=== PATIENT | female | born 1995 | race African-American/Black ===

== ENCOUNTER 2020-09-18 22:34 | Emergency (ER) | payer MEDICAID ==
[~2020-09-18] VITALS: Ht 162.6 cm; Wt 59.0 kg
--- NOTE | 2020-09-18 22:45 | NUR ---
ED Nurse Note: Pt reports right upper mouth pain intermittent for past couple of months. Pt reports she needs a root canal.
[2020-09-18] MEDS ORDERED: ACETAMINOPHEN-1 EAC1 ORAL (23:22)
[2020-09-18] MEDS ORDERED: PENICILLIN V P500 MG PO (23:22)
--- NOTE | 2020-09-18 23:25 | Emergency Room Report ---
History of Present Illness General Chief Complaint: Toothache Source: Patient Present Illness HPI Patient is a 24-year-old female presents for increased dental pain. Reports having increased pain to the right upper molar. Reports having previously been taking antibiotics for similar symptoms in the past. Had reported having increased pain with movement. Pain primarily to the right upper third molar. Denies any recent trauma. Not been of any fever or cough. Denies any locations of other discomfort. Allergies: Coded Allergies: No Known Allergies (Unverified , 09/18/20) COVID-19 Screening Contact w/high risk pt: No Experienced COVID-19 symptoms?: No COVID-19 Testing performed BUTTON BRADDER: No Patient History Past Medical History: see triage record Last Menstrual Period: 09/06/20 Now: No Reviewed Nursing Documentation: PMH: Agreed; PSxH: Agreed Nursing Documentation-PMH Past Medical History: No Stated History Review of Systems All Other Systems: negative except mentioned in HPI Physical Exam Vital Signs Date Time Temp Pulse Resp B/P (MAP) Pulse Ox O2 Delivery O2 Flow Rate FiO2 09/18/20 22:54 97.5 70 16 132/84 (100) 96 Room Air Sp02 EP Interpretation: reviewed, normal General Appearance: normal inspection, well appearing, no apparent distress, alert, GCS 15, non-toxic Head: atraumatic ENT: normal ENT inspection, hearing grossly normal, normal voice, other - Gingival swelling to third molar area on the right upper Neck: normal inspection, full range of motion, supple, no bony tend Respiratory: normal inspection, lungs clear, normal breath sounds, no respiratory distress, no retraction, no wheezing Cardiovascular #1: regular rate, rhythm, no edema Gastrointestinal: normal inspection, normal bowel sounds, non tender, soft, no guarding, no hernia Genitourinary: no CVA tenderness Musculoskeletal: normal inspection, back normal, normal range of motion Neurologic: alert, responsive, speech normal, normal inspection Psychiatric: normal inspection, judgement/insight normal, mood/affect normal Medical Decision Making Diagnostic Impression: Primary Impression: Impacted third molar tooth ER Course Presents for dental pain. Differential diagnosis include was not limited to dental caries, abscess, among others. Patient has a benign exam and does not appear to require any imaging or laboratory testing at this time. Patient does not appear to have any evidence of significant soft tissue swelling or any definite abscess at this time. Patient is given prescription for penicillin as well as medications for pain. She is advised to follow-up with oral surgery for recheck. She advised to return if worse. This medical record is generated with [email or web address] mill platform supervisor software. There may be some mill platform supervisor discrepancies related to use of this software Last Vital Signs Date Time Temp Pulse Resp B/P (MAP) Pulse Ox O2 Delivery O2 Flow Rate FiO2 09/18/20 22:54 97.5 70 16 132/84 (100) 96 Room Air Disposition: HOME, SELF-CARE Condition: Stable Scripts Acetaminophen With Codeine (T#3) (TYLENOL #3 TAB*) Y Tab 1 TAB ORAL Q8H PRN for For Pain, #12 TAB Prov: Osvaldo Sewell MD 09/18/20 Penicillin V Potassium* (PENVK*) 500 Mg Tablet 500 MG PO Q6H, #28 TAB 0 Refills Prov: Osvaldo Sewell MD 09/18/20 Patient Instructions: Dental Pain Additional Instructions: Follow up with oral surgery. Return if increased swelling fever or other concerns. Osvaldo Sewell MD Sep 18, 2020 23:25
[2020-09-18] MEDS ORDERED: Lidocaine 2% Visc 15ml soln ORAL ONE (23:30)
--- NOTE | 2020-09-18 23:39 | NUR ---
ED Nurse Note: Pt cleared by health care Provider for discharge. D/C instructions/prescription was given and explained to pt, and pt verbalized understanding of teachings. ID band removed. Pt is AAO x4, ambulatory and left with all personal belongings.
[2020-09-18 23:40] VITALS: BP 127/60
== END 2020-09-18 23:44 | disposition home or self-care (01) ==
LOC: EMR 23:00
DX: K01.1 Impacted teeth (principal)
CPT/HCPCS: 99282